=== PATIENT | male | born 1965 | race Caucasian/White ===

== ENCOUNTER 2025-01-30 13:41 | Outpatient (AMB) | payer MEDICARE, MEDICAID, SELFPAY ==
[2025-01-30 14:17] VITALS: BP 142/82; PULSE 62; RESP 18; TEMP 36.6; O2SAT 95; BMI 37.0
--- NOTE | 2025-01-30 14:17 | ORTHONT_ITS ---
Vital signs 01/30/25 14:17 Height 1.73 m Height Method Stated Weight 110.478 kg Weight Measurement Method Standing Scale BMI 37.0 BP 142/82 H Blood Pressure Source Automatic Cuff Blood Pressure Location Left Upper Arm Position Sitting Respiration 18 Pulse 62 Pulse Source Monitor Temp 97.8 F Temp Source Temporal Artery Scan Pulse Oximetry (%) 95 Oxygen Delivery Method Room Air Med/Allergies Allergies & Medications Allergies No Known Allergies Allergy (Verified 01/30/25 14:19) Medication Reconciliation Unobtainable 01/30/25 [History Confirmed 01/30/25] Exam Exam Patient is in no acute distress and is cooperative with the examination today. Breathing is nonlabored. In no respiratory distress. Patient has no paraspinal tenderness. Spinal deformity cannot be appreciated. The gait of the patient is nonantalgic Bilateral extremities were evaluated and demonstrates sensation intact to light touch. Palpable pedal pulses are present. No significant edema is present. Bilateral knees were examined and the patient has full strength and range of motion.. The left hip was examined. Patient was able to flex to 90 degrees, adduct to 30 degrees, abduct to 40 degrees, internally rotate to 20 degrees, and externally rotate to 20 degrees. Patient has a negative logroll. Stinchfield is negative. The patient is nontender diffusely to touch. The right hip was examined. Patient was able to flex to 90 degrees, adduct to 30 degrees, abduct to 40 degrees, internally rotate to 10 degrees, and externally rotate to 20 degrees. Patient has a positive logroll X-rays of the right hip demonstrate significant joint space narrowing superiorly and inferiorly. There is a spinal fusion as well. There is complete joint space narrowing of the right hip joint Assessment and Plan Problem List (1) Arthritis of right hip: Status: Acute Plan: Patient is a pleasant 59-year-old male with right hip pain and right hip arthritis. He had a recent spinal fusion as well. We discussed different treatment options. I would recommend a diagnostic and therapeutic cortisone hip injection to see how much of the pain is from his spine or from his hip. I would want probably wait several more months before proceeding with any operative management of his hip as he is still recovering from his spine surgery. I will see him back after his spine injection Office Procedures GNS Level of Care Nursing/Assessment Patient Status: Initial/New Patient Nursing Assessment/Reassesment: Medication Reconciliation, Update PMH in EMR and Vital Signs Coordination of Care: Complex Care and Chronic Disease 1-5, Education Complex Pt/Fam, Consent,records obtained, informed consent, 1 Ins Authorization, Lab and Imaging orders, Results/Orders obtained and Staff clarify orders New Patient Charge New Patient Point Assignment: 1124 New Patient Point Charge: PRESS MAINTAINER Level 4 ([id number]) MA Intake Visit Data Collection New Patient or Established: New Patient (never been to [facility]) Reason for Visit:: RIGHT HIP OA Seen by Clinical Staff ONLY (RN/MA): No PCP or OBGYN visit in last 3 months: Yes Hx Now: No Do You Feel Safe at Home: Yes Authorities Contacted: N/A Questionairres Past Medical History Past Medical History Have you ever been diagnosed with any of the following: Respiratory Problems Smoking: Yes (1 CIGARRETE/DAY) Smoking Cessation Counseling: Yes Smoking Exposure: Yes Subjective Visit Visit for: new patient and hip Immunization / Flu Flu Vaccine in the Last 12 Months: No Flu Vaccine Exclusion Criteria: No Exclusion Criteria History of Present Illness Chief complaint: Right hip pain Date of injury / onset of symptoms: 1 YEAR Patient is a 59-year-old male who is fracture of the lumbar spine surgery fusion that was done 4 months ago. He has significant right hip pain and has persistent pain in his groin and buttocks. This has been ongoing for a while. He reports that he had a hip injection [address] Muñoz and he did not get great pain relief. He reports he has continued pain and is still doing physical therapy for his back Personal History Occupation: [employer] Red flag PMH: smoker BMI Counceling provided: Yes Pain Pain level (0-10): 8 Pain location: outside (lateral) and posterior Pain quality: sharp Pain timing: night and increases with activity Ambulatory data Ambulatory device: walker Treatments Number of previous injections: 1 Improvement with previous injections: No Number of Physical Therapy sessions: 10 Improvement with PT: No Improvement with NSAIDS: yes (PREGABLIN) Review of Systems Review of Systems: All systems negative unless otherwise noted in HPI.
== END 2025-01-30 14:41 | disposition home or self-care (01) ==
PROVIDERS: PCP Internal Medicine; Referring Provider Internal Medicine; Supervising Provider Orthopaedic Surgery Adult Reconstructive Orthopaedic Surgery; Visit Provider Orthopaedic Surgery Adult Reconstructive Orthopaedic Surgery
DX: M16.11 Unilateral primary osteoarthritis, right hip (principal); M25.551 Pain in right hip; F17.210 Nicotine dependence, cigarettes, uncomplicated; Z71.6 Tobacco abuse counseling
CPT/HCPCS: 99204; J1010; J2795; G0463

== ENCOUNTER → 2025-02-15 | Outpatient (CLI) | payer MEDICARE, MEDICAID, SELFPAY ==
--- NOTE | 2025-02-15 13:00 | XR_ITS ---
Examination: Steroid injection right hip with imaging guidance Fluoroscopy . Exam date and time: 02/15/2025, 12:32 PM: Hip pain Informed consent provided. Technique: A timeout was completed verifying correct patient, procedure, site, positioning. The patient was placed in supine position appropriate for the steroid injection The patient's site was prepped and draped in sterile fashion 5 cc 1% lidocaine administered locally for anesthesia. Sterile drape applied, maximum barrier sterile technique. Utilizing fluoroscopic guidance, 23-gauge needle placed in the right hip joint 1 cc Triamcinalone in 5 cc 0.25% Marcaine introduced into the right hip joint The patient was in satisfactory and stable condition on completion of the procedure Attending radiologist was present for the entire procedure Estimated blood loss 0 cc. Impression: Successful right hip joint steroid injection with imaging guidance .
[2025-02-15] MEDS: TRIAMCINOLONE ACET INJ 40 MG/ML VIAL IARTICULAR (13:25)
== END | disposition home or self-care (01) ==
LOC: SIRX 12:12
PROVIDERS: Referring Provider Orthopaedic Surgery Adult Reconstructive Orthopaedic Surgery; Visit Provider Orthopaedic Surgery Adult Reconstructive Orthopaedic Surgery
DX: M16.11 Unilateral primary osteoarthritis, right hip (principal)
CPT/HCPCS: 20610; 77002; J3301; J3490; J0665

== ENCOUNTER 2025-03-01 12:54 | Outpatient (AMB) | payer MEDICARE, MEDICAID, SELFPAY ==
[2025-03-01 13:11] VITALS: BP 132/80; PULSE 68; RESP 18; TEMP 36.6; O2SAT 95; BMI 37.0
--- NOTE | 2025-03-01 13:11 | PD.ORTHCLVIS ---
Vital signs 03/01/25 13:11 Height 1.73 m Height Method Measured Weight 110.875 kg Weight Measurement Method Standing Scale BMI 37.0 BP 132/80 H Blood Pressure Source Automatic Cuff Blood Pressure Location Left Upper Arm Position Sitting Respiration 18 Pulse 68 Pulse Source Monitor Temp 97.8 F Temp Source Temporal Artery Scan Pulse Oximetry (%) 95 Oxygen Delivery Method Room Air Med/Allergies Allergies & Medications Allergies No Known Allergies Allergy (Verified 03/01/25 13:13) Medication Reconciliation meloxicam 7.5 mg tablet 7.5 mg PO QDAY #45 tabs 03/01/25 [Rx] Exam Exam Patient is in no acute distress and is cooperative with the examination today. Breathing is nonlabored. In no respiratory distress. Patient has no paraspinal tenderness. Spinal deformity cannot be appreciated. The gait of the patient is nonantalgic Bilateral extremities were evaluated and demonstrates sensation intact to light touch. Palpable pedal pulses are present. No significant edema is present. Bilateral knees were examined and the patient has full strength and range of motion.. The left hip was examined. Patient was able to flex to 90 degrees, adduct to 30 degrees, abduct to 40 degrees, internally rotate to 20 degrees, and externally rotate to 20 degrees. Patient has a negative logroll. Stinchfield is negative. The patient is nontender diffusely to touch. The right hip was examined. Patient was able to flex to 90 degrees, adduct to 30 degrees, abduct to 40 degrees, internally rotate to 10 degrees, and externally rotate to 20 degrees. Patient has a positive logroll X-rays of the right hip demonstrate significant joint space narrowing superiorly and inferiorly. There is a spinal fusion as well. There is complete joint space narrowing of the right hip joint Assessment and Plan Problem List (1) Arthritis of right hip: Status: Acute Plan: Patient is a pleasant 59-year-old male with right hip pain and right hip arthritis. He had a recent spinal fusion as well. We discussed different treatment options. I would recommend a diagnostic and therapeutic cortisone hip injection to see how much of the pain is from his spine or from his hip. I would want probably wait several more months before proceeding with any operative management of his hip as he is still recovering from his spine surgery. He did not get great relief with the last time Office Procedures GNS Level of Care Nursing/Assessment Patient Status: Established Patient Nursing Assessment/Reassesment: Medication Reconciliation, Orthostatic Vitals, Update PMH in EMR and Vital Signs Coordination of Care: Complex Care and Chronic Disease 1-5, Education Complex Pt/Fam, Consent,records obtained, informed consent, Results/Orders obtained and Staff clarify orders Established Patient Charge Established Patient Point Assignment: 105 Established Patient Point Charge: EP Level 3 (80-115) MA Intake Visit Data Collection New Patient or Established: Established Patient (seen at [facility] within 3 years) Reason for Visit:: RIGHT HIP OA Seen by Clinical Staff ONLY (RN/MA): No New Accounts Banking Representative Required: No PCP or OBGYN visit in last 3 months: Yes Hx Now: No Do You Feel Safe at Home: Yes Authorities Contacted: N/A Questionairres Past Medical History Past Medical History Have you ever been diagnosed with any of the following: Respiratory Problems Smoking: Yes (1 CIGARRETE/DAY) Smoking Cessation Counseling: Yes Smoking Exposure: Yes Subjective Visit Visit for: follow up visit and hip Immunization / Flu Flu Vaccine in the Last 12 Months: No Flu Vaccine Exclusion Criteria: No Exclusion Criteria History of Present Illness Chief complaint: Right hip pain Date of injury / onset of symptoms: 1 YEAR Patient is a 59-year-old male who is fracture of the lumbar spine surgery fusion that was done 4 months ago. He has significant right hip pain and has persistent pain in his groin and buttocks. This has been ongoing for a while. He reports that he had a hip injection [address] Muñoz and he did not get great pain relief. He reports he has continued pain and is still doing physical therapy for his back. He had a repeat hip injection and only received 2 weeks of relief. He is still fresh out from his spine surgery Personal History Occupation: [employer] PMH: smoker BMI Counceling provided: Yes Pain Pain level (0-10): 8 Pain location: outside (lateral) and posterior Pain quality: sharp Pain timing: night and increases with activity Ambulatory data Ambulatory device: walker Treatments Number of previous injections: 1 Improvement with previous injections: No Number of Physical Therapy sessions: 10 Improvement with PT: No Improvement with NSAIDS: yes (PREGABLIN) Review of Systems Review of Systems: All systems negative unless otherwise noted in HPI.
--- NOTE | 2025-03-01 13:16 | XR_ITS ---
Examination:Right hip AP, lateral, AP pelvis 3 views Technique: Hip AP lateral, AP pelvis, 3 views Exam date and time:March 01, 2025 1334 hours INDICATIONS: Chronic right hip pain years FINDINGS: Advanced right hip osteoarthritis Sclerosis and radiolucency right femoral head consistent with avascular necrosis No pelvic or hip fracture IMPRESSION: Advanced right hip osteoarthritis Avascular necrosis right femoral head, occupying more than 50% of the articulating surface of the femoral head.
== END 2025-03-01 13:22 | disposition home or self-care (01) ==
LOC: HODSRG 12:54
PROVIDERS: Supervising Provider Orthopaedic Surgery Adult Reconstructive Orthopaedic Surgery; Visit Provider Orthopaedic Surgery Adult Reconstructive Orthopaedic Surgery
DX: M16.11 Unilateral primary osteoarthritis, right hip (principal); M25.551 Pain in right hip; M87.851 Other osteonecrosis, right femur; S32.009D Unspecified fracture of unspecified lumbar vertebra, subsequent encounter for fracture with routine healing; X58.XXXD Exposure to other specified factors, subsequent encounter; F17.210 Nicotine dependence, cigarettes, uncomplicated; Z71.6 Tobacco abuse counseling
CPT/HCPCS: 73502; 99213; G0463